=== PATIENT | female | born 2000 | race Caucasian/White ===

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

== ENCOUNTER → 2021-08-14 | Outpatient (CLI) | payer OTHER ==
--- NOTE | 2021-08-14 13:09 | MR ---
EXAMINATION TYPE: MR brain wo con DATE OF EXAM: 08/14/2021 12:31 PM COMPARISON: NONE HISTORY: Chronic migraines Multiplanar and multispin-echo imaging of the brain was performed . The ventricles, basal cisterns and sulci overlying the cerebral convexities are within normal limits. There is no evidence for midline shift or mass effect. Acute intracranial hemorrhage or extra-axial collection is not evident. The brain parenchyma reveals no abnormal increased signal. No acute edema is identified. The paranasal sinuses and mastoid air cells are well-aerated. IMPRESSION: Unremarkable MRI of the brain.
== END | disposition home or self-care (01) ==
LOC: RADMRIMAIN 11:45
PROVIDERS: ATTEND Internal Medicine
DX: G43.909 Migraine, unspecified, not intractable, without status migrainosus (principal)
CPT/HCPCS: 70551

== ENCOUNTER → 2021-08-14 | Outpatient (CLI) | payer OTHER ==
--- NOTE | 2021-08-14 13:14 | US ---
EXAMINATION TYPE: US pelvic complete DATE OF EXAM: 08/14/2021 COMPARISON: NONE CLINICAL HISTORY: N92.6, N94.6. irregular cycles, started control and it is helping, G0 TECHNIQUE: TA. Transabdominal sonographic images of the pelvis were acquired. Date of LMP: unknown EXAM MEASUREMENTS: Uterus: 6.0 x 3.7 x 2.5 cm Endometrial Stripe: 0.5 cm Right Ovary: 1.4 x 1.5 x 1.5cm Left Ovary: not seen, bowel gas 1. Uterus: Anteverted wnl 2. Endometrium: wnl 3. Right Ovary: wnl 4. Left Ovary: not seen, peristalsing bowel obscures ovary 5. Bilateral Adnexa: wnl 6. Posterior cul-de-sac: wnl IMPRESSION: No significant abnormality seen.
== END | disposition home or self-care (01) ==
LOC: RADUSWWP 12:45
PROVIDERS: ATTEND Obstetrics & Gynecology
DX: N92.6 Irregular menstruation, unspecified (principal); N94.6 Dysmenorrhea, unspecified
CPT/HCPCS: 76856

== ENCOUNTER → 2021-11-03 | Outpatient (CLI) | payer OTHER ==
[~2021-11-03] MED LIST: BAMLANIVIMAB (EUA) 700 MG, ETESEVIMAB (EUA) 1,400 MG in SODIUM CHLORIDE 0.9% 100 ML IVPB ONE; SODIUM CHLORIDE 0.9% 50 ML IVPB NR; SODIUM CHLORIDE 0.9% 500 ML 500 ML in EMPTY BAG 1 BAG IV PRN
[2021-11-03 10:52] VITALS: TEMP 97.8
[2021-11-03 11:12] VITALS: BP 98/56; PULSE 96; RESP 16
== END | disposition home or self-care (01) ==
LOC: PROCWHC3 10:04
PROVIDERS: ATTEND Nurse Practitioner Family
DX: U07.1 COVID-19 (principal)
CPT/HCPCS: 96360; J3490; M0245

== ENCOUNTER 2023-11-29 00:18 | Emergency (ER) | payer OTHER ==
[2023-11-29 00:34] VITALS: TEMP 98.5
[2023-11-29] MEDS ORDERED: LORazepam 2 MG/ML INJ IV PRN ×3 (00:56)
[2023-11-29 01:51] LABS: Basophils # (A) 0.1 k/uL (0-0.2); Basophils % (A) 1 %; Eosinophils # (A) 0.2 k/uL (0-0.7); Eosinophils % (A) 3 %; HCT 41.9 % (34.0-46.0); HGB 14.1 gm/dL (11.4-16.0); Lymphocytes # (A) 0.5 k/uL (1.0-4.8); Lymphocytes % (A) 8 %; MCH 34.8 pg (25.0-35.0); MCHC 33.7 g/dL (31.0-37.0); MCV 103.1 fL (80.0-100.0); Macrocytosis Slight; Mean Platelet Volume 8.5; Monocytes # (A) 0.3 k/uL (0-1.0); Monocytes % (A) 5 %; Neutrophils # (A) 5.3 k/uL (1.3-7.7); Neutrophils % (A) 82 %; Platelet Count 124 k/uL (150-450); RBC 4.07 m/uL (3.80-5.40); RDW 12.2 % (11.5-15.5); WBC 6.5 k/uL (3.8-10.6)
[2023-11-29 01:55] LABS: Amorphous Sediment,Urine Rare /hpf; Appearance,Urine Clear (Clear); Bacteria,Urine Occasional /hpf; Bilirubin,Urine Negative (Negative); Blood,Urine Negative (Negative); Color,Urine Colorless; Glucose,Urine (UA) Negative (Negative); Ketones,Urine Negative (Negative); Leukocyte Esterase,Urine Moderate (Negative); Nitrite,Urine Negative (Negative); Protein,Urine Negative (Negative); RBC,Urine <1 /hpf (0-5); Specific Gravity,Urine 1.003 (1.001-1.035); Squamous Epithelial Cell,Urine <1 /hpf (0-4); Urobilinogen,Urine <2.0 mg/dL (<2.0); WBC,Urine 10 /hpf (0-5)
[2023-11-29] MEDS: LORazepam 2 MG/ML INJ IV STA (01:55)
[2023-11-29 02:15] LABS: ALT 107 U/L (4-34); AST 211 U/L (14-36); African American GFR (CKD) >90 (>60 ml/min/1.73 sqM); Albumin 4.7 g/dL (3.5-5.0); Alkaline Phosphatase 78 U/L (38-126); Anion Gap 9 mmol/L; Blood Urea Nitrogen 4 mg/dL (7-17); Carbon Dioxide 25 mmol/L (22-30); Chloride 101 mmol/L (98-107); Glucose 108 mg/dL (74-99); Magnesium 1.3 mg/dL (1.6-2.3); Non-African American GFR(CKD) >90 (>60 ml/min/1.73 sqM); Potassium 4.4 mmol/L (3.5-5.1); Sodium 135 mmol/L (137-145); Total Bilirubin 1.4 mg/dL (0.2-1.3); Total Protein 7.8 g/dL (6.3-8.2)
[2023-11-29] MEDS: THIAMINE 100 MG/ML 2 ML VIAL IM STA (02:17)
--- NOTE | 2023-11-29 02:46 | CT ---
EXAM: CT Head Without Intravenous Contrast CLINICAL HISTORY: ITS.REASON CT Reason: dilated, nonreactive L pupil TECHNIQUE: Axial computed tomography images of the head/brain without intravenous contrast. CTDI is 49.2 mGy and DLP is 1109.4 mGy-cm. This CT exam was performed using one or more of the following dose reduction techniques: automated exposure control, adjustment of the mA and/or kV according to patient size, and/or use of iterative reconstruction technique. COMPARISON: MRI brain dated 08/14/21 FINDINGS: Brain: Unremarkable. No hemorrhage. No significant white matter disease. No edema. Ventricles: Unremarkable. No ventriculomegaly. Bones/joints: Unremarkable. No acute fracture. Soft tissues: Unremarkable. Sinuses: Unremarkable as visualized. No acute sinusitis. Mastoid air cells: Unremarkable as visualized. No mastoid effusion. IMPRESSION: No evidence of acute intracranial abnormality. If further concern, consider MRI.
--- NOTE | 2023-11-29 03:16 | ED ---
Eye Problem HPI - General Chief complaint: Eye Problems Stated complaint: left eye dilation Time Seen by Provider: 11/29/23 00:43 Source: patient Mode of arrival: ambulatory Limitations: no limitations - History of Present Illness Initial comments: This is a 23-year-old female presenting with chief complaint of unequal pupil size. Patient is currently undergoing alcohol withdrawal. Last drink was on Saturday, which is now 2 days ago. She normally drinks a fifth of liquor daily. Patient states she was looking in the mirror tonight and noticed that her left pupil was larger than her right. She denies any head injury. No eye pain or vision changes. No numbness tingling or weakness. No chest pain or difficulty breathing. No abdominal pain. No headache. Patient does not use scopolamine patches. States that she recently quit vaping, states that she only vapes nicotine. No other drug use. No use of antiperspirant deodorant wipes. No eyedrops. 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 ROS Other: All systems not noted in ROS Statement are negative. Past Medical History Past Medical History: No Reported History History of Any Multi-Drug Resistant Organisms: None Reported Past Surgical History: No Surgical Hx Reported Past Psychological History: Anxiety, Depression Smoking Status: Former smoker Past Alcohol Use History: Abuse, Daily, Heavy Past Drug Use History: None Reported General Exam Limitations: no limitations General appearance: alert, anxious Head exam: Present: atraumatic, normocephalic Eye exam: Present: normal appearance, EOMI Pupils: Present: unequal Expanded Pupils: Regular, Round: Right, Reactive: Right, Mydriasis: Left (nonreactive) IOP (R) in mmH IOP (L) in mmH Neck exam: Present: normal inspection, full ROM Respiratory exam: Present: normal lung sounds bilaterally. Absent: respiratory distress, wheezes, rales, rhonchi, stridor Cardiovascular Exam: Present: normal rhythm, tachycardia, normal heart sounds. Absent: systolic murmur, diastolic murmur, rubs, gallop, clicks Neurological exam: Present: alert, oriented X3 Expanded Patient oriented to: Present: person, place, time Speech: Present: fluid speech Cranial nerves: EOM's Intact: Normal, Tongue Deviation: Normal Sensory exam: Upper Extremity Light Touch: Normal, Lower Extremity Light Touch: Normal Motor strength exam: RUE: 5, LUE: 5, RLE: 5, LLE: 5 Eye Response: (4) open spontaneously Motor Response: (6) obeys commands Verbal Response: (5) oriented [place] Total: 15 Psychiatric exam: Present: anxious (etoh withdrawal) Skin exam: Present: warm, dry Course Vital Signs 11/29/23 11/29/23 11/29/23 00:26 02:00 03:00 Temperature 98.5 F Pulse Rate 129 H 126 H 80 Respiratory 18 22 19 Rate Blood Pressure 156/96 139/93 127/65 O2 Sat by Pulse 96 96 98 Oximetry 11/29/23 11/29/23 04:00 05:00 Temperature Pulse Rate 80 69 Respiratory 21 17 Rate Blood Pressure 115/63 115/63 O2 Sat by Pulse 97 Oximetry Medical Decision Making - Medical Decision Making Was pt. sent in by a medical professional or institution (GUSTABO Gimenez, ROTARY SHEAR OPERATOR, urgent care, hospital, or shelter...) When possible be specific @ -No Did you speak to anyone other than the patient for history (EMS, parent, family, police, friend...)? What history was obtained from this source @ -History supplemented by family at bedside Did you review nursing and triage notes (agree or disagree)? Why? @ -I reviewed and agree with nursing and triage notes Were old charts reviewed (outside hosp., previous admission, EMS record, old EKG, old radiological studies, urgent care reports/EKG's, shelter records)? Report findings @ -No old charts were reviewed Differential Diagnosis (chest pain, altered mental status, abdominal pain women, abdominal pain men, vaginal bleeding, weakness, fever, dyspnea, syncope, headache, dizziness, GI bleed, back pain, seizure, CVA, palpatations, mental health, musculoskeletal)? @ -Differential includes intracranial hemorrhage, aneurysm, medication induced, physiologic anisocoria, this is not an all-inclusive list EKG interpreted by me (3pts min.). @ -EKG shows sinus tachycardia ventricular rate 101. QRS 73. QT 311. QTc 369. Normal axis. X-rays interpreted by me (1pt min.). @ -None done CT interpreted by me (1pt min.). @ -CT shows no evidence of acute intracranial abnormality U/S interpreted by me (1pt. min.). @ -None done What testing was considered but not performed or refused? (CT, X-rays, U/S, labs)? Why? @ -None What meds were considered but not given or refused? Why? @ -None Did you discuss the management of the patient with other professionals (professionals i.e. , PA, ROTARY SHEAR OPERATOR, lab, RT, psych nurse, social media specialist, foundry worker apprentice, teacher, personal banking officer, bilingual case manager)? Give summary @ -No Was smoking cessation discussed for >3mins.? @ -No Was critical care preformed (if so, how long)? @ -No Were there social determinants of health that impacted care today? How? (Homelessness, low income, unemployed, alcoholism, drug addiction, trans portation, low edu. Level, literacy, decrease access to med. care, [facility], rehab)? @ -Alcoholism Was there de-escalation of care discussed even if they declined (Discuss DNR or withdrawal of care, Hospice)? DNR status @ -No What co-morbidities impacted this encounter? (DM, HTN, Smoking, COPD, CAD, C ancer, CVA, ARF, Chemo, Hep., AIDS, mental health diagnosis, sleep apnea, morbid obesity)? @ -None Was patient admitted / discharged? Hospital course, mention meds given and route, prescriptions, significant lab abnormalities, going to OR and other pertinent info. @ -23-year-old female presenting with chief complaint of unequal pupil size and alcohol withdrawal. Patient noticed the difference in pupil sizes this evening while looking in the mirror. Her last drink was on Saturday, she normally drinks a fifth per day. History and physical exam were conducted. She recently started taking Lexapro, no known anticholinergic medications or eyedrops are noted. Left pupil is dilated and nonreactive. Extraocular motions are intact, facial symmetry is noted. Equal strength and sensation in the bilateral extremities. No confusion or cognitive deficits. Patient is having tremors due to alcohol withdrawal. Initial CIWA score of 12, given 2 mg Ativan. Normal pressures to the eyes bilaterally. She is having no vision changes. MCV 103.1 platelet count 124 Total bilirubin 1.4 AST 211 ALT 107, to be expected with daily alcohol use. Magnesium 1.3, patient is given 1 g magnesium sulfate. Urine shows 10 WBCs, patient is having no urinary symptoms. Negative hCG. CT shows no acute intracranial process. On reassessment the patient appears much more comfortable, her tremoring has subsided. She is educated on today's findings. I believe she will be stable for discharge home, she is provided with short course of Ativan and educated on alarm symptoms that should prompt immediate reevaluation. At this time unilateral pupil dilation seems to be attributed to physiologic anisocoria, she is instructed to follow-up with ophthalmology. Discharged home. Follow-up with PCP. Report back to ER with any new or worsening symptoms. Discussed return parameters and answered all questions. Patient conveyed verbal understanding and agreed to the plan. I discussed this case in detail with my attending Dr. Ace Undiagnosed new problem with uncertain prognosis? @ -No Drug Therapy requiring intensive monitoring for toxicity (Heparin, Nitro, Insulin, Cardizem)? @ -No Were any procedures done? @ -No Diagnosis/symptom? @ -Alcohol withdrawal, physiologic anisocoria Acute, or Chronic, or Acute on Chronic? @ -Acute Uncomplicated (without systemic symptoms) or Complicated (systemic symptoms)? @ -Uncomplicated Side effects of treatment? @ -No Exacerbation, Progression, or Severe Exacerbation? @ -No Poses a threat to life or bodily function? How? (Chest pain, [place], [place], pneumonia, PE, COPD, DKA, ARF, appy, cholecystitis, CVA, Diverticulitis, Homicidal, Suicidal, threat to staff... and all critical care pts) @ -Low likelihood at this time - Lab Data Result diagrams: 11/29/23 01:40 11/29/23 01:40 Lab Results 11/29/23 11/29/23 11/29/23 Range/Units 01:30 01:30 01:40 WBC 6.5 (3.8-10.6) k/uL RBC 4.07 (3.80-5.40) m/uL Hgb 14.1 (11.4-16.0) gm/dL Hct 41.9 (34.0-46.0) % MCV 103.1 H (80.0-100.0) fL MCH 34.8 (25.0-35.0) pg MCHC 33.7 (31.0-37.0) g/dL RDW 12.2 (11.5-15.5) % Plt Count 124 L (150-450) k/uL MPV 8.5 Neutrophils % 82 % Lymphocytes % 8 % Monocytes % 5 % Eosinophils % 3 % Basophils % 1 % Neutrophils # 5.3 (1.3-7.7) k/uL Lymphocytes # 0.5 L (1.0-4.8) k/uL Monocytes # 0.3 (0-1.0) k/uL Eosinophils # 0.2 (0-0.7) k/uL Basophils # 0.1 (0-0.2) k/uL Macrocytosis Slight Sodium (137-145) mmol/L Potassium (3.5-5.1) mmol/L Chloride (98-107) mmol/L Carbon Dioxide (22-30) mmol/L Anion Gap mmol/L BUN (7-17) mg/dL Creatinine (0.52-1.04) mg/dL Est GFR (CKD-EPI)AfAm (>60 ml/min/1.73 sqM) Est GFR (CKD-EPI)NonAf (>60 ml/min/1.73 sqM) Glucose (74-99) mg/dL Calcium (8.4-10.2) mg/dL Magnesium (1.6-2.3) mg/dL Total Bilirubin (0.2-1.3) mg/dL AST (14-36) U/L ALT (4-34) U/L Alkaline Phosphatase (38-126) U/L Total Protein (6.3-8.2) g/dL Albumin (3.5-5.0) g/dL Urine Color Colorless Urine Appearance Clear (Clear) Urine pH 7.0 (5.0-8.0) Ur Specific [place] 1.003 (1.001-1.035) Urine Protein Negative (Negative) Urine Glucose (UA) Negative (Negative) Urine Ketones Negative (Negative) Urine Blood Negative (Negative) Urine Nitrite Negative (Negative) Urine Bilirubin Negative (Negative) Urine Urobilinogen <2.0 (<2.0) mg/dL Ur Leukocyte Esterase Moderate H (Negative) Urine RBC <1 (0-5) /hpf Urine WBC 10 H (0-5) /hpf Ur Squamous Epith Cells <1 (0-4) /hpf Amorphous Sediment Rare H (None) /hpf Urine Bacteria Occasional H (None) /hpf Urine HCG, Qual Not Detected (Not Detectd) 11/29/23 Range/Units 01:40 WBC (3.8-10.6) k/uL RBC (3.80-5.40) m/uL Hgb (11.4-16.0) gm/dL Hct (34.0-46.0) % MCV (80.0-100.0) fL MCH (25.0-35.0) pg MCHC (31.0-37.0) g/dL RDW (11.5-15.5) % Plt Count (150-450) k/uL MPV Neutrophils % % Lymphocytes % % Monocytes % % Eosinophils % % Basophils % % Neutrophils # (1.3-7.7) k/uL Lymphocytes # (1.0-4.8) k/uL Monocytes # (0-1.0) k/uL Eosinophils # (0-0.7) k/uL Basophils # (0-0.2) k/uL Macrocytosis Sodium 135 L (137-145) mmol/L Potassium 4.4 (3.5-5.1) mmol/L Chloride 101 (98-107) mmol/L Carbon Dioxide 25 (22-30) mmol/L Anion Gap 9 mmol/L BUN 4 L (7-17) mg/dL Creatinine 0.44 L (0.52-1.04) mg/dL Est GFR (CKD-EPI)AfAm >90 (>60 ml/min/1.73 sqM) Est GFR (CKD-EPI)NonAf >90 (>60 ml/min/1.73 sqM) Glucose 108 H (74-99) mg/dL Calcium 10.0 (8.4-10.2) mg/dL Magnesium 1.3 L (1.6-2.3) mg/dL Total Bilirubin 1.4 H (0.2-1.3) mg/dL AST 211 H (14-36) U/L ALT 107 H (4-34) U/L Alkaline Phosphatase 78 (38-126) U/L Total Protein 7.8 (6.3-8.2) g/dL Albumin 4.7 (3.5-5.0) g/dL Urine Color Urine Appearance (Clear) Urine pH (5.0-8.0) Ur Specific [place] (1.001-1.035) Urine Protein (Negative) Urine Glucose (UA) (Negative) Urine Ketones (Negative) Urine Blood (Negative) Urine Nitrite (Negative) Urine Bilirubin (Negative) Urine Urobilinogen (<2.0) mg/dL Ur Leukocyte Esterase (Negative) Urine RBC (0-5) /hpf Urine WBC (0-5) /hpf Ur Squamous Epith Cells (0-4) /hpf Amorphous Sediment (None) /hpf Urine Bacteria (None) /hpf Urine HCG, Qual (Not Detectd) Disposition Clinical Impression: Alcohol withdrawal, Physiologic anisocoria Disposition: HOME SELF-CARE Instructions (If sedation given, give patient instructions): Alcohol Withdrawal (ED) Additional Instructions: Follow-up with PCP and ophthalmology. Report back to ER with any new or worsening symptoms. Prescriptions: LORazepam [Ativan] 1 mg PO TID 3 Days #9 tab Is patient prescribed a controlled substance at d/c from ED?: Yes When asked, does pt state using other controlled substances?: No If prescribed controlled substance>3 days was MAPS reviewed?: Prescribed <3 Days Referrals: Benjamin Barry MD [Primary Care Provider] - 1-2 days Paty Jones MD [STAFF PHYSICIAN] - 1-2 days Time of Disposition: 04:01
[2023-11-29] MEDS: MAGNESIUM SULFATE-D5W PMX 1 GM in DEXTROSE/WATER 1 100ML.BAG IVPB ONE (03:25)
[2023-11-29] MEDS: SODIUM CHLORIDE 0.9% 1,000 ML IV ONE (03:25)
[2023-11-29 05:03] VITALS: BP 115/63
[2023-11-29 05:30] VITALS: PULSE 69; RESP 17
[2023-11-30] MEDS ORDERED: THIAMINE 100 MG TAB PO SCH (09:00)
== END 2023-11-29 05:32 | disposition home or self-care (01) ==
LOC: EC 00:18
DX: H57.02 Anisocoria (principal); F10.239 Alcohol dependence with withdrawal, unspecified; Z86.59 Personal history of other mental and behavioral disorders; Z87.891 Personal history of nicotine dependence; Z88.0 Allergy status to penicillin
CPT/HCPCS: 36415; 93005; 80053; 83735; 85025; 81001; 81025; 70450; 99284; 96365; 96375; 96372; J2060; J3411; J3475

== ENCOUNTER 2024-02-01 20:56 | Inpatient (IN) | payer OTHER ==
--- NOTE | 2024-02-01 21:50 | ED ---
General Adult HPI - General Chief complaint: Headache Stated complaint: Seizure Time Seen by Provider: 02/01/24 20:59 Source: patient Mode of arrival: EMS Limitations: no limitations - History of Present Illness Initial comments: 23-year-old female with a past medical history significant for alcohol abuse and migraines presenting to the ED with a chief complaint of possible seizure. Per parents, received a call that her daughter was not feeling good and upon arrival found her tremulous. Shortly after reported seizure like activity. Patient at this time complains of anxiety and tremors. Denies headache, nausea, vomiting, paresthesias, auditory, or visual hallucinations. Patient reports that she is an up to daily drinker and drinks up to a pint a day. Reports her last heavy alcohol use was 2 days ago in which she reports she drank a pint. Reports that she did have a "drink" earlier today. No other complaints at this time. Per mother, was in an argument with the patients a few days ago and suspects she stopped drinking suddenly because of this. - Related Data Home Medications Medication Instructions Recorded Confirmed Rizatriptan Odt [Maxalt Nurse Office] 10 mg PO BID PRN 09/04/17 09/04/17 Previous Rx's Medication Instructions Recorded LORazepam [Ativan] 1 mg PO TID 3 Days #9 tab 11/29/23 Allergies Allergy/AdvReac Type Severity Reaction Status Date / Time Penicillins AdvReac Unknown Verified 11/29/23 00:31 Review of Systems ROS Statement: Those systems with pertinent positive or pertinent negative responses have been documented in the HPI. ROS Other: All systems not noted in ROS Statement are negative. Past Medical History Past Medical History: No Reported History History of Any Multi-Drug Resistant Organisms: None Reported Past Surgical History: No Surgical Hx Reported Past Psychological History: Anxiety, Depression Smoking Status: Former smoker Past Alcohol Use History: Abuse, Daily, Heavy Past Drug Use History: None Reported General Exam Limitations: no limitations General appearance: alert, anxious Eye exam: Present: EOMI, other (Right eye reactive, left pupil fixed) ENT exam: Present: other (Intraoral bite kumar to the lips and some to the tongue) Neck exam: Present: normal inspection Respiratory exam: Present: normal lung sounds bilaterally Cardiovascular Exam: Present: tachycardia GI/Abdominal exam: Present: soft Extremities exam: Present: other (Tremulous with arms extended) Neurological exam: Present: alert, oriented X3, CN II-XII intact, other (Intact serial additions) Psychiatric exam: Present: anxious Skin exam: Present: warm, dry Course Vital Signs 02/01/24 02/01/24 02/01/24 20:59 22:27 23:03 Pulse Rate 128 H 124 H 118 H Respiratory 18 16 16 Rate Blood Pressure 141/102 131/95 O2 Sat by Pulse 96 Oximetry Medical Decision Making - Medical Decision Making Was pt. sent in by a medical professional or institution (, PA, FREIGHT SEPARATOR, urgent care, hospital, or shelter...) When possible be specific @ -No Did you speak to anyone other than the patient for history (EMS, parent, family, police, friend...)? What history was obtained from this source @ -Parts of history obtained by both patient and mother. For further details please see HPI. Did you review nursing and triage notes (agree or disagree)? Why? @ -I reviewed and agree with nursing and triage notes Were old charts reviewed (outside hosp., previous admission, EMS record, old EKG, old radiological studies, urgent care reports/EKG's, shelter records)? Report findings @ -Prior charts reviewed showing history of anisocoria and alcohol abuse Differential Diagnosis (chest pain, altered mental status, abdominal pain women, abdominal pain men, vaginal bleeding, weakness, fever, dyspnea, syncope, headache, dizziness, GI bleed, back pain, seizure, CVA, palpatations, mental health, musculoskeletal)? @ -Differential Seizure: Recurrent seizure disorder, febrile seizure, alcohol withdrawal, stimulants, meningitis, encephalitis, intercranial hemorrhage, intracranial tumor, stroke, eclampsia, thyrotoxicosis, hypocalcemia, hyponatremia, hypernatremia, hyp omagnesemia, psychogenic, this is not meant to be an all-inclusive list. EKG interpreted by me (3pts min.). @ -None X-rays interpreted by me (1pt min.). @ -None done CT interpreted by me (1pt min.). @ -None done U/S interpreted by me (1pt. min.). @ -None done What testing was considered but not performed or refused? (CT, X-rays, U/S, labs)? Why? @ -None What meds were considered but not given or refused? Why? @ -None Did you discuss the management of the patient with other professionals (professionals i.e. DrSamson, PA, FREIGHT SEPARATOR, lab, RT, psych nurse, bilingual social worker, career resource technician, teacher, special technical operations officer, case reviewer)? Give summary @ -Case discussed with Dr. Glaser, who accepts admission and is in agreement with plan of care. Was smoking cessation discussed for >3mins.? @ -No Was critical care preformed (if so, how long)? @ -No Were there social determinants of health that impacted care today? How? (Homelessness, low income, unemployed, alcoholism, drug addiction, transportation, low edu. Level, literacy, decrease access to med. care, group home, rehab)? @ -No Was there de-escalation of care discussed even if they declined (Discuss DNR or withdrawal of care, Hospice)? DNR status @ -No What co-morbidities impacted this encounter? (DM, HTN, Smoking, COPD, CAD, Cancer, CVA, ARF, Chemo, Hep., AIDS, mental health diagnosis, sleep apnea, morbid obesity)? @ -Alcoholism Was patient admitted / discharged? Hospital course, mention meds given and route, prescriptions, significant lab abnormalities, going to OR and other pertinent info. @ -Admission 23-year-old female presenting to the ED with complaint seizure. No history of seizures in the past. Per patient, drinks a pint daily. States her last major drink was approximately 3 days ago in which she had a pint. Reports that she had 1 drink today. From parents, was in an argument with patient few days ago and suspects that she quit drinking cold turkey following this argument. Received a call from the patient today who reported she was not feeling there. Upon arrival to the patient she was very tremulous and they witnessed her having a seizure. Laboratory studies reviewed. CBC largely unremarkable. CMP shows transaminitis consistent with history of alcohol use. Lactic acid elevated at 3 and on examination patient does have intraoral trauma consistent with seizure. UA does show some evidence of infection however at this time patient reports no symptoms. Patient will be admitted secondary to alcohol withdrawal with seizure. Plan of care discussed with patient and family who are in agreement. Undiagnosed new problem with uncertain prognosis? @ -No Drug Therapy requiring intensive monitoring for toxicity (Heparin, Nitro, In sulin, Cardizem)? @ -No Were any procedures done? @ -No Diagnosis/symptom? @ -Alcohol withdrawal, seizure Acute, or Chronic, or Acute on Chronic? @ -Acute Uncomplicated (without systemic symptoms) or Complicated (systemic symptoms)? @ -Complicated Side effects of treatment? @ -No Exacerbation, Progression, or Severe Exacerbation? @ -No Poses a threat to life or bodily function? How? (Chest pain, [place], [place], pneumonia, PE, COPD, DKA, ARF, appy, cholecystitis, CVA, Diverticulitis, Homicidal, Suicidal, threat to staff... and all critical care pts) @ -Possibly however at this time unlikely - Lab Data Result diagrams: 02/01/24 22:05 02/01/24 22:05 Lab Results 02/01/24 02/01/24 02/01/24 Range/Units 21:58 21:58 22:05 WBC 7.5 (3.8-10.6) k/uL RBC 4.16 (3.80-5.40) m/uL Hgb 14.6 (11.4-16.0) gm/dL Hct 43.0 (34.0-46.0) % MCV 103.3 H (80.0-100.0) fL MCH 35.2 H (25.0-35.0) pg MCHC 34.0 (31.0-37.0) g/dL RDW 13.8 (11.5-15.5) % Plt Count 105 L (150-450) k/uL MPV 9.9 Neutrophils % 92 % Lymphocytes % 3 % Monocytes % 4 % Eosinophils % 1 % Basophils % 0 % Neutrophils # 6.9 (1.3-7.7) k/uL Lymphocytes # 0.2 L (1.0-4.8) k/uL Monocytes # 0.3 (0-1.0) k/uL Eosinophils # 0.0 (0-0.7) k/uL Basophils # 0.0 (0-0.2) k/uL Macrocytosis Slight Sodium (137-145) mmol/L Potassium (3.5-5.1) mmol/L Chloride (98-107) mmol/L Carbon Dioxide (22-30) mmol/L Anion Gap mmol/L BUN (7-17) mg/dL Creatinine (0.52-1.04) mg/dL Est GFR (CKD-EPI)AfAm (>60 ml/min/1.73 sqM) Est GFR (CKD-EPI)NonAf (>60 ml/min/1.73 sqM) Glucose (74-99) mg/dL Plasma Lactic Acid Franco (0.7-2.0) mmol/L Calcium (8.4-10.2) mg/dL Total Bilirubin (0.2-1.3) mg/dL AST (14-36) U/L ALT (4-34) U/L Alkaline Phosphatase (38-126) U/L Total Protein (6.3-8.2) g/dL Albumin (3.5-5.0) g/dL Urine Color Yellow Urine Appearance Cloudy H (Clear) Urine pH 6.5 (5.0-8.0) Ur Specific Bridgman 1.022 (1.001-1.035) Urine Protein 2+ H (Negative) Urine Glucose (UA) Negative (Negative) Urine Ketones 2+ H (Negative) Urine Blood Small H (Negative) Urine Nitrite Negative (Negative) Urine Bilirubin Negative (Negative) Urine Urobilinogen <2.0 (<2.0) mg/dL Ur Leukocyte Esterase Small H (Negative) Urine RBC 3 (0-5) /hpf Urine WBC 5 (0-5) /hpf Ur Squamous Epith Cells 6 H (0-4) /hpf Urine Bacteria Rare H (None) /hpf Urine Mucus Many H (None) /hpf Urine HCG, Qual Not Detected (Not Detectd) Urine Opiates Screen Not Detected (NotDetected) Ur Oxycodone Screen Not Detected (NotDetected) Urine Methadone Screen Not Detected (NotDetected) Ur Barbiturates Screen Not Detected (NotDetected) U Tricyclic Antidepress Not Detected (NotDetected) Ur Phencyclidine Scrn Not Detected (NotDetected) Ur Amphetamines Screen Not Detected (NotDetected) U Methamphetamines Scrn Not Detected (NotDetected) U Benzodiazepines Scrn Not Detected (NotDetected) Urine Cocaine Screen Not Detected (NotDetected) U Marijuana (THC) Screen Not Detected (NotDetected) Serum Alcohol mg/dL 02/01/24 02/01/24 Range/Units 22:05 22:05 WBC (3.8-10.6) k/uL RBC (3.80-5.40) m/uL Hgb (11.4-16.0) gm/dL Hct (34.0-46.0) % MCV (80.0-100.0) fL MCH (25.0-35.0) pg MCHC (31.0-37.0) g/dL RDW (11.5-15.5) % Plt Count (150-450) k/uL MPV Neutrophils % % Lymphocytes % % Monocytes % % Eosinophils % % Basophils % % Neutrophils # (1.3-7.7) k/uL Lymphocytes # (1.0-4.8) k/uL Monocytes # (0-1.0) k/uL Eosinophils # (0-0.7) k/uL Basophils # (0-0.2) k/uL Macrocytosis Sodium 130 L (137-145) mmol/L Potassium 4.1 (3.5-5.1) mmol/L Chloride 98 (98-107) mmol/L Carbon Dioxide 19 L (22-30) mmol/L Anion Gap 13 mmol/L BUN 4 L (7-17) mg/dL Creatinine 0.41 L (0.52-1.04) mg/dL Est GFR (CKD-EPI)AfAm >90 (>60 ml/min/1.73 sqM) Est GFR (CKD-EPI)NonAf >90 (>60 ml/min/1.73 sqM) Glucose 139 H (74-99) mg/dL Plasma Lactic Acid Franco 3.0 H* (0.7-2.0) mmol/L Calcium 9.8 (8.4-10.2) mg/dL Total Bilirubin 1.8 H (0.2-1.3) mg/dL AST 286 H (14-36) U/L ALT 97 H (4-34) U/L Alkaline Phosphatase 119 (38-126) U/L Total Protein 8.2 (6.3-8.2) g/dL Albumin 4.9 (3.5-5.0) g/dL Urine Color Urine Appearance (Clear) Urine pH (5.0-8.0) Ur Specific Bridgman (1.001-1.035) Urine Protein (Negative) Urine Glucose (UA) (Negative) Urine Ketones (Negative) Urine Blood (Negative) Urine Nitrite (Negative) Urine Bilirubin (Negative) Urine Urobilinogen (<2.0) mg/dL Ur Leukocyte Esterase (Negative) Urine RBC (0-5) /hpf Urine WBC (0-5) /hpf Ur Squamous Epith Cells (0-4) /hpf Urine Bacteria (None) /hpf Urine Mucus (None) /hpf Urine HCG, Qual (Not Detectd) Urine Opiates Screen (NotDetected) Ur Oxycodone Screen (NotDetected) Urine Methadone Screen (NotDetected) Ur Barbiturates Screen (NotDetected) U Tricyclic Antidepress (NotDetected) Ur Phencyclidine Scrn (NotDetected) Ur Amphetamines Screen (NotDetected) U Methamphetamines Scrn (NotDetected) U Benzodiazepines Scrn (NotDetected) Urine Cocaine Screen (NotDetected) U Marijuana (THC) Screen (NotDetected) Serum Alcohol <10 mg/dL Disposition Clinical Impression: Seizure, Alcohol withdrawal Disposition: ADMITTED IP TO THIS [facility] Condition: Good Referrals: Benjamin Barry MD [Primary Care Provider] - 1-2 days Time of Disposition: 23:15
[2024-02-01] MEDS: SODIUM CHLORIDE 0.9% 1,000 ML IV STA (22:05)
[2024-02-01] MEDS: LORazepam 2 MG/ML INJ IV STA (22:05)
[2024-02-01 22:30] LABS: Basophils % (A) 0 %; Eosinophils % (A) 1 %; Lymphocytes # (A) 0.2 k/uL (1.0-4.8); Lymphocytes % (A) 3 %; Macrocytosis Slight; Monocytes # (A) 0.3 k/uL (0-1.0); Monocytes % (A) 4 %; Neutrophils % (A) 92 %
[2024-02-01 22:43] LABS: HGB 14.6 gm/dL (11.4-16.0); MCH 35.2 pg (25.0-35.0); MCV 103.3 fL (80.0-100.0); Mean Platelet Volume 9.9; Neutrophils # (A) 6.9 k/uL (1.3-7.7); Platelet Count 105 k/uL (150-450); RBC 4.16 m/uL (3.80-5.40); RDW 13.8 % (11.5-15.5); WBC 7.5 k/uL (3.8-10.6)
[2024-02-01 22:58] LABS: Appearance,Urine Cloudy (Clear); Bacteria,Urine Rare /hpf; Bilirubin,Urine Negative (Negative); Blood,Urine Small (Negative); Color,Urine Yellow; Glucose,Urine (UA) Negative (Negative); Leukocyte Esterase,Urine Small (Negative); Mucus,Urine Many /hpf; Nitrite,Urine Negative (Negative); PH, Urine 6.5 (5.0-8.0); Protein,Urine 2+ (Negative); RBC,Urine 3 /hpf (0-5); Specific Gravity,Urine 1.022 (1.001-1.035); Squamous Epithelial Cell,Urine 6 /hpf (0-4); Urobilinogen,Urine <2.0 mg/dL (<2.0); WBC,Urine 5 /hpf (0-5)
[2024-02-01 23:03] LABS: ALT 97 U/L (4-34); African American GFR (CKD) >90 (>60 ml/min/1.73 sqM); Alcohol <10 mg/dL; Anion Gap 13 mmol/L; Blood Urea Nitrogen 4 mg/dL (7-17); Calcium 9.8 mg/dL (8.4-10.2); Carbon Dioxide 19 mmol/L (22-30); Chloride 98 mmol/L (98-107); Glucose 139 mg/dL (74-99); Non-African American GFR(CKD) >90 (>60 ml/min/1.73 sqM); Sodium 130 mmol/L (137-145); Total Bilirubin 1.8 mg/dL (0.2-1.3)
[2024-02-01 23:04] LABS: Amphetamine Screen,Urine Not Detected (NotDetected); Barbiturate Screen,Urine Not Detected (NotDetected); Benzodiazepines Screen,Urine Not Detected (NotDetected); Cocaine Screen,Urine Not Detected (NotDetected); Methadone Screen, Urine Not Detected (NotDetected); Opiate Screen,Urine Not Detected (NotDetected); Oxycodone Screen, Urine Not Detected (NotDetected); Phencyclidine Screen,Urine Not Detected (NotDetected); Tricyclic Antidepressant,Urine Not Detected (NotDetected); Urn Cannabinoid Scrn Not Detected (NotDetected)
[2024-02-01 23:05] LABS: Ketones,Urine 2+ (Negative)
[2024-02-01] MEDS ORDERED: LORazepam 2 MG/ML INJ IV PRN (23:16)
[2024-02-01 23:26] LABS: AST 286 U/L (14-36); Albumin 4.9 g/dL (3.5-5.0); Alkaline Phosphatase 119 U/L (38-126); Potassium 4.1 mmol/L (3.5-5.1); Total Protein 8.2 g/dL (6.3-8.2)
[2024-02-01 23:42] LABS: Magnesium 1.7 mg/dL (1.6-2.3); Phosphorus 2.7 mg/dL (2.5-4.5)
[2024-02-01] MEDS ORDERED: ONDANSETRON 4 MG/2 ML VIAL IVP PRN (23:43)
[2024-02-01] MEDS ORDERED: NALOXONE 0.4 MG/ML 1 ML VIAL IV PRN (23:43)
[2024-02-01] MEDS ORDERED: ACETAMINOPHEN TAB 325 MG TAB PO PRN (23:43)
[2024-02-01] MEDS ORDERED: KETOROLAC 15 MG/ML 1 ML VIAL IVP PRN (23:43)
[2024-02-01] MEDS: THIAMINE 100 MG/ML 2 ML VIAL IM STA (23:49)
[2024-02-01] MEDS: FOLIC ACID 1 MG TAB PO SCH (23:49)
[2024-02-01] MEDS: DEXTROSE 5%-0.45% NACL 1,000 ML IV SCH (23:55)
[2024-02-02] MEDS: THIAMINE 100 MG TAB PO SCH (08:49)
[2024-02-02] MEDS: LORazepam 2 MG/ML INJ IV PRN ×2 (08:56→21:57)
--- NOTE | 2024-02-02 10:09 | P.HPIM ---
History of Present Illness H&P Date: 02/02/24 Chief Complaint: New onset seizure This is a 23-year-old female known to the practice. She has a history of alcoholism. She drinks approximately a pint of alcohol a day and has for quite some time. She indicates at least it has been the past several months. She reports doing counseling and other therapy to help with her alcoholism. She indicates that several days ago she tried to quit drinking. She was driving home last night when she felt very shaky and had significant muscle spasms. She stopped and her family had come to her aid. They report after getting out of the car she had a seizure. She was unconscious. This lasted for 30 to 45 seconds of shaking uncontrollably. Then she was confused for 20 to 30 minutes. At that time she was brought in the emergency room seen evaluated. Her only complaint at this moment was some ear pain at the time she was having seizure indicates that came and went since then. She is being seen this morning in the emergency room. Her father is at bedside. She reports no other symptoms right at this time. She does not know why she continues to drink alcohol. She tried to quit to make her life better. 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 [employer] for employment (including self-employed).: No Medications and Allergies Home Medications Medication Instructions Recorded Confirmed Type Rizatriptan Odt [Maxalt Manhole Stripper] 10 mg PO BID PRN 09/04/17 09/04/17 History LORazepam [Ativan] 1 mg PO TID 3 Days #9 tab 11/29/23 Rx Allergies Allergy/AdvReac Type Severity Reaction Status Date / Time Penicillins AdvReac Unknown Verified 11/29/23 00:31 Physical Exam Vitals: Vital Signs Pulse Resp BP Pulse Ox 02/02/24 08:00 92 20 117/70 98 02/02/24 05:00 80 16 107/61 02/02/24 02:41 115 H 16 117/73 96 02/02/24 01:25 95 18 02/01/24 23:03 118 H 16 131/95 04/13/24 22:27 124 H 16 02/01/24 20:59 128 H 18 141/102 96 Intake and Output 02/01/24 02/02/24 02/02/24 22:59 06:59 14:59 Other: Weight 45.359 kg GENERAL: Well-appearing, well-nourished and in no acute distress. HEAD: Atraumatic, normocephalic. EYES: Pupils equal round and reactive to light, extraocular movements intact, sclera anicteric, conjunctiva are normal. ENT:nares patent, oropharynx clear without exudates. Moist mucous membranes. NECK: Normal range of motion, supple without lymphadenopathy or JVD, no thyromegaly LUNGS: Breath sounds clear to auscultation bilaterally and equal. No wheezes rales or rhonchi. HEART: Regular rate and rhythm without murmurs, rubs or gallops.S1S2 Normal ABDOMEN: Soft, nontender, normoactive bowel sounds. No guarding, no rebound. No masses appreciated. EXTREMITIES: Normal range of motion, no pitting or edema. No clubbing or cyanosis. NEUROLOGICAL: Cranial nerves II through XII grossly intact. Normal speech, normal gait. PSYCH: Normal mood, normal affect. SKIN: Warm, Dry, normal turgor, no rashes or lesions noted. Results CBC & Chem 7: 02/01/24 22:05 02/01/24 22:05 Labs: Abnormal Lab Results - Last 24 Hours (Table) 02/01/24 02/01/24 02/01/24 Range/Units 21:58 22:05 22:05 MCV 103.3 H (80.0-100.0) fL MCH 35.2 H (25.0-35.0) pg Plt Count 105 L (150-450) k/uL Lymphocytes # 0.2 L (1.0-4.8) k/uL Sodium 130 L (137-145) mmol/L Carbon Dioxide 19 L (22-30) mmol/L BUN 4 L (7-17) mg/dL Creatinine 0.41 L (0.52-1.04) mg/dL Glucose 139 H (74-99) mg/dL Plasma Lactic Acid Franco (0.7-2.0) mmol/L Total Bilirubin 1.8 H (0.2-1.3) mg/dL GGT (0-38) U/L AST 286 H (14-36) U/L ALT 97 H (4-34) U/L Urine Appearance Cloudy H (Clear) Urine Protein 2+ H (Negative) Urine Ketones 2+ H (Negative) Urine Blood Small H (Negative) Ur Leukocyte Esterase Small H (Negative) Ur Squamous Epith Cells 6 H (0-4) /hpf Urine Bacteria Rare H (None) /hpf Urine Mucus Many H (None) /hpf 02/01/24 02/01/24 Range/Units 22:05 22:05 MCV (80.0-100.0) fL MCH (25.0-35.0) pg Plt Count (150-450) k/uL Lymphocytes # (1.0-4.8) k/uL Sodium (137-145) mmol/L Carbon Dioxide (22-30) mmol/L BUN (7-17) mg/dL Creatinine (0.52-1.04) mg/dL Glucose (74-99) mg/dL Plasma Lactic Acid Franco 3.0 H* (0.7-2.0) mmol/L Total Bilirubin (0.2-1.3) mg/dL GGT 600 H (0-38) U/L AST (14-36) U/L ALT (4-34) U/L Urine Appearance (Clear) Urine Protein (Negative) Urine Ketones (Negative) Urine Blood (Negative) Ur Leukocyte Esterase (Negative) Ur Squamous Epith Cells (0-4) /hpf Urine Bacteria (None) /hpf Urine Mucus (None) /hpf Thrombosis Risk Factor Assmnt - DVT/VTE Prophylaxis DVT/VTE Prophylaxis: Low risk, early ambulation encouraged Assessment and Plan (1) Migraine Current Visit: Yes Status: Acute Code(s): G43.909 - MIGRAINE, UNSP, NOT INTRACTABLE, WITHOUT STATUS MIGRAINOSUS SNOMED Code(s): 62334648 (2) Alcohol withdrawal Current Visit: Yes Status: Acute Code(s): F10.939 - ALCOHOL USE, UNSPECIFIED WITH WITHDRAWAL, UNSPECIFIED SNOMED Code(s): 139972014 (3) Seizure Current Visit: Yes Status: Acute Code(s): R56.9 - UNSPECIFIED CONVULSIONS SNOMED Code(s): 85302209 (4) Otalgia of right ear Current Visit: Yes Status: Acute Code(s): H92.01 - OTALGIA, RIGHT EAR SNOMED Code(s): 4279426361 Plan: We will consult neurology. Repeat labs today and in AM. Multivitamin supplement will be ordered, reorder home medications for her migraines. Should be reevaluated in the next 24 hours. She was counseled that [facility] law indicates after seizure she is unable to drive for 6 months.
[2024-02-02] MEDS ORDERED: SUMAtriptan succinate 50 MG TAB PO PRN (10:10)
[2024-02-02 11:24] LABS: African American GFR (CKD) >90 (>60 ml/min/1.73 sqM); Anion Gap 6 mmol/L; Blood Urea Nitrogen 4 mg/dL (7-17); Calcium 9.3 mg/dL (8.4-10.2); Carbon Dioxide 26 mmol/L (22-30); Chloride 101 mmol/L (98-107); Glucose 107 mg/dL (74-99); Magnesium 1.9 mg/dL (1.6-2.3); Non-African American GFR(CKD) >90 (>60 ml/min/1.73 sqM); Potassium 3.3 mmol/L (3.5-5.1); Sodium 133 mmol/L (137-145)
[2024-02-02] MEDS ORDERED: Potassium Replacement Protocol 1 EACH MISC MISCELLANE PRN (16:09)
[2024-02-02] MEDS: POTASSIUM CHLORIDE ER 20 MEQ TAB.ER PO SCH (17:50)
[2024-02-03] MEDS: SERTRALINE 100 MG TAB PO SCH (08:06)
[2024-02-03 08:23] VITALS: BP 134/92; PULSE 78; RESP 18; TEMP 97.5
[2024-02-03 08:45] LABS: African American GFR (CKD) >90 (>60 ml/min/1.73 sqM); Anion Gap 12 mmol/L; Blood Urea Nitrogen 5 mg/dL (7-17); Calcium 9.9 mg/dL (8.4-10.2); Carbon Dioxide 21 mmol/L (22-30); Chloride 106 mmol/L (98-107); Glucose 88 mg/dL (74-99); Magnesium 1.8 mg/dL (1.6-2.3); Non-African American GFR(CKD) >90 (>60 ml/min/1.73 sqM); Potassium 3.3 mmol/L (3.5-5.1); Sodium 139 mmol/L (137-145)
--- NOTE | 2024-02-03 09:59 | P.CNNES ---
History of Present Illness Consult date: 02/02/24 Requesting physician: Manuel Aaron Reason for Consult: Alcohol withdrawal. Seizure. No hx seizure. Likely 2' to withdrawal History of Present Illness: Patient is a 23-year-old female who was brought to the hospital by ambulance for possible seizure, that happened last night at around 8:15 PM. Patient states that she was driving home, when she started having uncontrollable shakes. She pulled over and called her family. Patient's parents came over and she could not walk to her dad's car. They drove back to the home, which is about [address], and while he was parked in the driveway, and another couple min utes, patient had a convulsion, in which her eyes rolled back. She remembers feeling as if voices got muffled as if she was going underwater before the seizure. She did not lose control of urine or had a tongue bite, although she did bit on her lips. They called the ambulance and patient was brought to the hospital. Patient states that she does not remember the seizure or the events that led up to the seizure. Yesterday she was very confused has to ask what happened. When she came to the hospital she was coherent, but confused as to what happened. When EMS arrived, patient was confused, postictal. Her vitals at the scene was blood pressure 158/98, pulse rate 1 and 17, temperature 98.6 and blood sugar 136. Vitals on arrival blood pressure 141/102, pulse rate 128. Repeat blood pressure was 131/95. Patient states that about 1 time, a few weeks ago when she was out of state and she was in the passenger side and her friend was driving when she had uncontrollable shakes, but it did not escalate to the seizure. Patient's blood test shows CBC with elevated MCV 103.3. Platelets are low 105. Hemoglobin normal. Sodium 130. Lactate was 3.0, elevated. AST 286, ALT 97. GGT also elevated. Patient had a normal CT scan of the head. I personally reviewed CT head, which was normal. Patient had a previous normal MRI of the brain performed without contrast on 08/14/2021 for "headaches". Patient denies any history of seizures. Her maternal grandfather had seizures related to "sugars and blood pressure". Patient denies any tobacco use. No use of drugs. Patient states that she drinks most of the days (about 3 to 4 days) of the week. She takes 2-3+ drinks on those days. She usually takes seltzer vodka. Patient states that she has been drinking much more since November 2023. Previously she used to be "casual drinker". Patient visited ER on 11/29/2023 for alcohol withdrawal as well. There were no shakes or seizure, although patient was "jittery", and her pupils were unusually dilated. She was given Ativan, Benadryl and sent home. Patient also has history of optic migraines. Review of Systems Constitutional: Denies chills, Denies fever Eyes: denies blurred vision, denies diplopia, denies pain, denies loss of vision Ears: deny: decreased hearing, ear discharge Ears, nose, mouth and throat: Denies headache, Denies sore throat, Denies vertigo Cardiovascular: Reports chest pain, Denies lightheadedness, Denies shortness of breath Respiratory: Denies cough, Denies excessive sputum Gastrointestinal: Denies abdominal pain, Denies diarrhea, Denies nausea, Denies vomiting Genitourinary: Denies dysuria, Denies hematuria, Denies urge incontinence, Denies urgency Musculoskeletal: Denies low back pain, Denies myalgias, Denies neck pain Integumentary: Denies pruritus, Denies rash Neurological: Reports as per HPI Psychiatric: Reports anxiety, Reports depression Endocrine: Reports weight change, Denies fatigue Past Medical History Past Medical History: No Reported History History of Any Multi-Drug Resistant Organisms: None Reported Past Surgical History: No Surgical Hx Reported Past Psychological History: Anxiety, Depression Smoking Status: Former smoker Past Alcohol Use History: Abuse, Daily, Heavy Past Drug Use History: None Reported Medications and Allergies Home Medications Medication Instructions Recorded Confirmed Type Atogepant [Qulipta] 60 mg PO DAILY 02/02/24 02/02/24 History Ramelteon 8 mg PO HS PRN 02/02/24 02/02/24 History Rimegepant Sulfate [Nurtec Odt] 75 mg PO DAILY PRN MDD 75 mg 02/02/24 02/02/24 History Sertraline [Zoloft] 100 mg PO HS 02/02/24 02/02/24 History Ubrogepant [Ubrelvy] 100 mg PO BID PRN MDD 200mg 02/02/24 02/02/24 History hydrOXYzine pamoate [Vistaril] 50 mg PO HS PRN 02/02/24 02/02/24 History norethindrone-e.estradioL-iron 1 tab PO DAILY 02/02/24 02/02/24 History [Clara 24 Fe 1 mg-20 Mcg Tablet] Allergies Allergy/AdvReac Type Severity Reaction Status Date / Time Penicillins AdvReac Unknown Verified 02/02/24 10:14 Physical Examination - Vital Signs Vital Signs: Vital Signs Pulse Resp BP Pulse Ox 02/02/24 14:00 86 16 105/60 98 02/02/24 12:00 100 20 106/70 98 02/02/24 08:00 92 20 117/70 98 02/02/24 05:00 80 16 107/61 02/02/24 02:41 115 H 16 117/73 96 02/02/24 01:25 95 18 02/01/24 23:03 118 H 16 131/95 02/01/24 22:27 124 H 16 02/01/24 20:59 128 H 18 141/102 96 Patient is a young female, very pleasant, in no acute distress. Patient is alert awake oriented to time place and person. Speech and language functions are normal. Patient can name and repeat very well. No aphasia or dysarthria. Attention, concentration and fund of knowledge is adequate. On cranial nerve examination, pupils are equal, round and reacting to light, visual mckeon are full on confrontation, with no neglect on double simultaneous stimulation. Extraocular muscles are intact with no nystagmus. Face is symmetric, tongue protrudes to the midline. Palatal elevation and sensation normal, hearing and shoulder shrug normal, facial sensation normal. On muscle strength testing, there is no pronator drift and the strength is normal in arms and legs distally and proximally. Deep tendon reflexes are symmetric 1+ to 2+ and plantars are withdrawal bilaterally. Sensory to touch is equal with no neglect on double simultaneous stimulation. Cerebellar function showed no ataxia for [id number]-ga-[id number] testing. No dysdiadochokinesia. No ataxia for ofxi-wa-jwfn testing on either side. Tone and bulk of muscles normal. Gait deferred.. On general examination, there is no carotid bruit or murmur, S1-S2 audible. Chest is clear on consultation. Abdomen is soft nontender. No organomegaly, bowel sounds present. Peripheral pulses are present. No peripheral edema. Results - Laboratory Findings CBC and BMP: 02/01/24 22:05 02/03/24 08:09 Abnormal Lab Findings: Abnormal Labs 02/01/24 02/01/24 02/01/24 21:58 22:05 22:05 MCV 103.3 H MCH 35.2 H Plt Count 105 L Lymphocytes # 0.2 L Sodium 130 L Potassium Carbon Dioxide 19 L BUN 4 L Creatinine 0.41 L Glucose 139 H Plasma Lactic Acid Franco Total Bilirubin 1.8 H GGT AST 286 H ALT 97 H Urine Appearance Cloudy H Urine Protein 2+ H Urine Ketones 2+ H Urine Blood Small H Ur Leukocyte Esterase Small H Ur Squamous Epith Cells 6 H Urine Bacteria Rare H Urine Mucus Many H 02/01/24 02/01/24 02/02/24 22:05 22:05 10:46 MCV MCH Plt Count Lymphocytes # Sodium 133 L Potassium 3.3 L Carbon Dioxide BUN 4 L Creatinine 0.49 L Glucose 107 H Plasma Lactic Acid Franco 3.0 H* Total Bilirubin GGT 600 H AST ALT Urine Appearance Urine Protein Urine Ketones Urine Blood Ur Leukocyte Esterase Ur Squamous Epith Cells Urine Bacteria Urine Mucus Assessment and Plan Assessment: * New onset seizure, probable alcohol withdrawal seizure. * History of uncontrollable shakes (once) a few weeks ago, but without evolving into seizure. * History of alcoholism * Elevated blood pressures, rule out hypertension versus withdrawal related. * Elevated hepatic enzymes, likely due to alcoholism * History of migraines Plan: * EEG evaluate for epileptiform activity. * No antiepileptic medications indicated, unless EEG shows any clear epileptiform activity. * Patient was informed of [place] state law of no driving unless seizure-free for 6 months, climbing ladders, operating dangerous machinery's or unsupervise d swimming. * Management of elevated liver enzymes as per IM. * Patient's blood pressure seems to be elevated. Need to closely monitor. * Watch for delirium tremens. * Thiamine, folate, multivitamins. * Neurologically clear, if the EEG comes back normal. * Thank you for the consult.
[2024-02-03] MEDS: MAGNESIUM SULFATE-D5W PMX 1 GM in DEXTROSE/WATER 1 100ML.BAG IVPB ONE (10:16)
[2024-02-03] MEDS: POTASSIUM CHLORIDE 20 MEQ in WATER FOR INJECTION 1 100ML.BAG IVPB SCH (10:16)
[2024-02-03] MEDS: PANTOPRAZOLE 40 MG/10 ML VIAL IVP SCH (10:16)
[2024-02-03 11:03] LABS: ALT 85 U/L (4-34); AST 151 U/L (14-36); Albumin 4.7 g/dL (3.5-5.0); Alkaline Phosphatase 103 U/L (38-126); Total Bilirubin 1.4 mg/dL (0.2-1.3)
--- NOTE | 2024-02-03 12:04 | P.PN ---
Subjective Progress Note Date: 02/03/24 Patient was seen for a follow-up. Patient's father was also present today. No further seizures reported. She is feeling better. Objective - Vital Signs Vital signs: Vital Signs Temp 97.5 F L 02/03/24 07:59 Pulse 78 02/03/24 07:59 Resp 18 02/03/24 07:59 BP 134/92 02/03/24 07:59 Pulse Ox 97 02/03/24 07:59 FiO2 Intake & Output 02/02/24 02/03/24 02/03/24 18:59 06:59 18:59 Other: # Voids 2 - Exam Normal. - Labs CBC & Chem 7: 02/01/24 22:05 02/03/24 08:09 Labs: Abnormal Lab Results - Last 24 Hours (Table) 02/03/24 Range/Units 08:09 Potassium 3.3 L (3.5-5.1) mmol/L Carbon Dioxide 21 L (22-30) mmol/L BUN 5 L (7-17) mg/dL Creatinine 0.47 L (0.52-1.04) mg/dL Total Bilirubin 1.4 H (0.2-1.3) mg/dL AST 151 H (14-36) U/L ALT 85 H (4-34) U/L Microbiology - Last 24 Hours (Table) 02/01/24 21:58 Urine Culture - Final Urine,Clean Catch Assessment and Plan Assessment: * New onset seizure, probable alcohol withdrawal seizure. * History of uncontrollable shakes (once) a few weeks ago, but without evolving into seizure. * History of alcoholism * Elevated blood pressures, rule out hypertension versus withdrawal related. * Elevated hepatic enzymes, likely due to alcoholism * History of migraines Plan: * EEG was performed today, which was abnormal due to presence of excessive amount of low voltage fast frequency beta activity suggestive of medication (benzodiazepine) effect. No focal, lateralized or epileptiform activity was seen. * No indication for antiepileptic medication, as the seizure was provoked due to alcohol withdrawal. * Patient was informed of [place] state law of no driving unless seizure-free for 6 months, climbing ladders, operating dangerous machinery's or unsupervised swimming. * Liver functions are improving. * Patient's blood pressure seems to be elevated. Need to closely monitor. Blood pressure also somewhat better. * Thiamine, folate, multivitamins. * Counseled about abstinence from alcoholism. * Neurologically clear.
[2024-02-03] MEDS: POTASSIUM CHLORIDE ER 20 MEQ TAB.ER PO STA (12:26)
--- NOTE | 2024-02-03 13:05 | EEG ---
ELECTROENCEPHALOGRAM REPORT PREAMBLE: This is a 23-year-old female with new-onset seizure. EEG FINDINGS: This is a 21-channel digital EEG recorded with video component, utilizing 10/20 international system with referential and bipolar montages. Background consists of moderately well-developed and regulated, predominantly low-voltage fast frequency beta activity seen in bihemispheric region. Background is posterior dominant and seems to be slightly reactive to eye opening and closing. Photic driving response was not seen. Hyperventilation was not done. Some drowsiness was seen with presence of bilaterally symmetric theta frequency rhythm mainly in temporal regions. Deeper stages of sleep were not seen. No focal or generalized epileptiform activity was seen. IMPRESSION: This is a mildly abnormal EEG due to presence of excessive amount of low-voltage fast frequency beta activity suggestive of medication effect. No focal, lateralized or epileptiform activity was seen. MMGABRIELLA / IJLizz: [id number] / MTDD
--- NOTE | 2024-02-03 15:21 | P.CN ---
Psychiatric Consult - . Consult date: 02/03/24 Consult:: I attempted to see this patient in the ER at around 3:10 pm today but she had already been discharged home.
--- NOTE | 2024-02-03 15:38 | CDI ---
Documentation Clarification Form Date: 02/03/2024 03:19:49 PM From: Gabby Douglas RN, CCDS Phone: [phone] Admit Date: 02/01/2024 10:39:00 PM Patient Name: Luiza Macedo Visit Number: [id number] Discharge Date: ATTENTION: The Clinical Documentation Specialists (CDI) and [facility] Coding Staff appreciate your assistance in clarifying documentation. Please respond to the clarification below the line at the bottom and electronically sign. The CDI & [facility] Coding staff will review the response and follow-up if needed. Please note: Queries are made part of the Legal Health Record. If you have any questions, please contact the author of this message via ITS. Dr. Benjamin Barry Your patient has an abnormal lab value: Lactic acid 3.0. Please clarify if there is an additional diagnosis and/or clinical significance related to this value. History/Risk Factors: Anxiety, Depression, Alcohol use: Abuse, daily, heavy, Former smoker Clinical indicators: 23-year-old female past medical history significant for alcohol abuse and migraine presenting to the ED with a chief complaint of possible seizure. 01/31 VS 141/102 128 18, 131/95 118 16 01/31 Labs: Na+ 130 Lactic acid 3.0, Treatment: Director Of Rehabilitative Services/Telemetry .9 NS 1,000 MLS Bolus 01/31-01/31 D5/NS IV @ 100 ML/HR 01/31-02/02 Is there an additional diagnosis and/or clinical significance related to the above lab result/information? [ X] Acute Lactic acidosis [ ] No additional diagnosis/Not clinically significant [ ] Other, please specify [ ] Unable to determine (Template Last Revised: November 2020) MTDD
--- NOTE | 2024-02-04 14:26 | P.DS ---
Providers Date of admission: 02/01/24 22:39 Expected date of discharge: 02/03/24 Attending physician: Benjamin Beth Consults: 02/01/24 23:43 Consult Physician Urgent Consulting Provider: Conner Cavazos Consult Reason/Comments: Alcohol withdrawal. Seizure. No hx seizure. Likely 2' to withdrawal Do you want consulting provider notified?: Yes 02/03/24 08:18 Consult Physician Routine Consulting Provider: Jl Prescott Consult Reason/Comments: depression,anxiety, panic attacks Do you want consulting provider notified?: Yes Primary care physician: Benjamin Barry Hospital Course: Final diagnoses New onset seizure, suspect alcohol withdrawal seizure, neurology following. Both patient and father have been instructed that per [place] state law no driv ing until she has been seizure-free for 6 months. Alcohol withdrawal, DTs Alcohol dependence, reports drinks 1 pint daily of seltzers or vodka; alcohol abstinence reinforced, recommending inpatient rehab be arranged this week. Elevated LFTs with a T. bili of 1.8 on admission, likely secondary to the above ,improving Lactic acidosis, 3 on admission currently down to 1.2 Reports history of anxiety, depression, panic attacks History of migraines Ongoing vaping, counseled on cessation Hospital course: This is a 23-year-old female with history of alcoholism, vaping ,anxiety, depression, panic attacks, lives at home with her parents. Reports she started drinking around age 18 or 19 and currently drinks 1 pint daily of seltzers or vodka. Previously following with a psychiatrist, last seen about a year ago. Has been following with a counselor at [facility] for over the last 2-3 months, since her previous withdrawal occurrence 11/29/2023. Patient reports she drinks mostly in her bedroom. Discussed with both patient and father that psychiatry consulted. Father adamant that they will not wait to see a psychiatrist if she has to remain in the ER another night.Father retorted that his daughter "would not get better in this room". Continues on CIWA protocol,CIWA score 6, fine tremors. Denies lightheadedness dizziness or focal deficits. Denies headache. denies chest pain, palpitations or shortness of breath. Evaluated at lunchtime per Dr. Beth PCP. Dr. Beth discussed with both father and patient, the patient needs rehab him most likely inpatient rehab. very soon and that patient should call this week, secure arrangements to attend as soon as possible. Father and patient verbalized not wanting to wait to be evaluated by psychiatry and they want be discharged home. Patient states she is not suicidal or homicidal. Dr. Shin,PCP gave orders to proceed with discharge,now. Dr. Beth will be calling in Valium Rx from the office with instructions that patient is to come into his office on with regular appointments for tapering of Valium. Reinforced that per [place] state law no driving until patient has been seizure-free for 6 months. Both father and patient verbalized understanding and replied they would be compliant. Vaping cessation and alcohol abstinence reinforced. Patient will be discharged home in a stable condition with guarded prognosis. Please refer to EHR for full reports regarding this admission as documented by admitting PCP and neurology. The impression and plan of care has been dictated as directed. : I performed a history and examination of this patient, discussed the same with the dictator. I agree with the dictator's note ,documented as a scribe. Any additional findings or plans will be noted. Patient Condition at Discharge: Stable Plan - Discharge Summary New Discharge Prescriptions: New Folic Acid 1 mg PO DAILY tab Multivitamin [Multivitamins Adult Gummies] 1 each PO DAILY #30 tab Thiamine [Vitamin B-1] 100 mg PO DAILY tab Continue norethindrone-e.estradioL-iron [Clara 24 Fe 1 mg-20 Mcg Tablet] 1 tab PO DAILY Ubrogepant [Ubrelvy] 100 mg PO BID PRN MDD 200mg PRN Reason: Migraine Headache Ramelteon 8 mg PO HS PRN PRN Reason: sleep Rimegepant Sulfate [Nurtec Odt] 75 mg PO DAILY PRN MDD 75 mg PRN Reason: Migraine Headache hydrOXYzine pamoate [Vistaril] 50 mg PO HS PRN PRN Reason: Anxiety Sertraline [Zoloft] 100 mg PO HS Atogepant [Qulipta] 60 mg PO DAILY Discharge Medication List Atogepant [Qulipta] 60 mg PO DAILY 02/02/24 [History] Ramelteon 8 mg PO HS PRN 02/02/24 [History] Rimegepant Sulfate [Nurtec Odt] 75 mg PO DAILY PRN MDD 75 mg 02/02/24 [History] Sertraline [Zoloft] 100 mg PO HS 02/02/24 [History] Ubrogepant [Ubrelvy] 100 mg PO BID PRN MDD 200mg 02/02/24 [History] hydrOXYzine pamoate [Vistaril] 50 mg PO HS PRN 02/02/24 [History] norethindrone-e.estradioL-iron [Clara 24 Fe 1 mg-20 Mcg Tablet] 1 tab PO DAILY 02/02/24 [History] Folic Acid 1 mg PO DAILY tab 02/03/24 [Rx] Multivitamin [Multivitamins Adult Gummies] 1 each PO DAILY #30 tab 02/03/24 [Rx] Thiamine [Vitamin B-1] 100 mg PO DAILY tab 02/03/24 [Rx] Follow up Appointment(s)/Referral(s): Sachin Beth Jr, [Doctor of Osteopathic Medicine] - 3 Days Patient Instructions/Handouts: Epilepsy (DC), Alcohol Withdrawal (DC) Activity/Diet/Wound Care/Special Instructions: valium 10mg tid * RX being called in from Dr. Beth's office) Discharge Disposition: HOME SELF-CARE
== END 2024-02-03 13:55 | disposition home or self-care (01) | DRG 101 ==
LOC: EC 20:56 → 4SSUR 22:39 → 3SCARD 02-02 12:50
PROVIDERS: ADMIT Family Medicine; ATTEND Family Medicine
DX: R56.9 Unspecified convulsions (principal); F10.239 Alcohol dependence with withdrawal, unspecified; E87.21 Acute metabolic acidosis; R03.0 Elevated blood-pressure reading, without diagnosis of hypertension; F32.A Depression, unspecified; F41.9 Anxiety disorder, unspecified; H92.01 Otalgia, right ear; G43.909 Migraine, unspecified, not intractable, without status migrainosus; Z88.0 Allergy status to penicillin; Z87.891 Personal history of nicotine dependence
CPT/HCPCS: 36415; 80048; 80053; 80306; 80320; 81001; 81025; 82977; 83605; 83735; 84100; 85025; 87086; 95816; 96361; 96365; 96366; 96368; 96372; 96375; 96376; 99285

== ENCOUNTER 2024-06-27 19:31 | Observation (INO) | payer OTHER ==
--- NOTE | 2024-06-27 20:29 | ED ---
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 Mother reports patient has been sober for several months, however started d rinking again several days ago. Mother reports patient was "passed out drunk" yesterday. She states today patient has been acting abnormally and not been feeling well. Mother is concerned as last time patient had a grand mal seizure during alcohol withdrawal. (Niya Ramirez) This is a 23-year-old female to ER for severe alcohol intoxication (Pierce Beth) - Related Data Home Medications Medication Instructions Recorded Confirmed Ramelteon 8 mg PO HS PRN 02/02/24 06/28/24 Rimegepant Sulfate [Nurtec Odt] 75 mg PO DAILY PRN MDD 75 mg 02/02/24 06/28/24 Ubrogepant [Ubrelvy] 100 mg PO BID PRN MDD 200mg 02/02/24 06/28/24 norethindrone-e.estradioL-iron 1 tab PO DAILY 02/02/24 06/28/24 [Clara 24 Fe 1 mg-20 Mcg Tablet] Multivitamin [Multivitamins Adult 1 tab PO DAILY 06/28/24 06/28/24 Gummies] cloNIDine HCL 0.1 mg PO DAILY 06/28/24 06/28/24 hydrOXYzine pamoate [Vistaril] 50 mg PO HS PRN 06/28/24 06/28/24 Previous Rx's Medication Instructions Recorded Thiamine [Vitamin B-1] 100 mg PO DAILY tab 02/03/24 Sertraline HCl [Zoloft] 50 mg PO HS #30 tablet 06/29/24 Allergies Allergy/AdvReac Type Severity Reaction Status Date / Time Penicillins AdvReac Unknown Verified 06/28/24 10:54 Review of Systems ROS Other: All systems not noted in ROS Statement are negative. <Niya Ramirez - Last Filed: 06/27/24 20:26> ROS Other: All systems not noted in ROS Statement are negative. <Pierce Beth - Last Filed: 07/16/24 16:57> ROS Statement: Those systems with pertinent positive or pertinent negative responses have been documented in the HPI. Past Medical History Past Medical History: No Reported History History of Any Multi-Drug Resistant Organisms: None Reported Past Surgical History: No Surgical Hx Reported Past Psychological History: Anxiety, Depression Smoking Status: Former smoker Past Alcohol Use History: Abuse, Daily, Heavy Past Drug Use History: None Reported <Niya Ramirez - Last Filed: 06/27/24 20:26> General Exam Limitations: no limitations <Niya Ramirez - Last Filed: 06/27/24 20:26> General appearance: alert, appears intoxicated, anxious Head exam: Present: atraumatic, normocephalic, normal inspection Eye exam: Present: normal appearance, PERRL, EOMI. Absent: scleral icterus, conjunctival injection, periorbital swelling ENT exam: Present: normal exam, mucous membranes moist Neck exam: Present: normal inspection. Absent: tenderness, meningismus, lymphadenopathy Respiratory exam: Present: normal lung sounds bilaterally. Absent: respiratory distress, wheezes, rales, rhonchi, stridor Cardiovascular Exam: Present: regular rate, normal rhythm, normal heart sounds. Absent: systolic murmur, diastolic murmur, rubs, gallop, clicks GI/Abdominal exam: Present: soft, normal bowel sounds. Absent: distended, tenderness, guarding, rebound, rigid Extremities exam: Present: normal inspection, full ROM, normal capillary refill. Absent: tenderness, pedal edema, joint swelling, calf tenderness Back exam: Present: normal inspection Neurological exam: Present: alert, oriented X3, CN II-XII intact Psychiatric exam: Present: normal affect, normal mood Skin exam: Present: warm, dry, intact, normal color. Absent: rash <Pierce Beth - Last Filed: 07/16/24 16:57> - General Exam Comments Initial Comments: Visual Physical Exam Vital signs reviewed General: Well-appearing, nontoxic, no acute distress. Head: Normocephalic, atraumatic Eyes: PERRLA, EOMI ENT: Airway patent Chest: Nonlabored breathing Skin: No visual rash, normal skin tone Neuro: Alert and oriented 3 Musculoskeletal: No gross abnormalities (Niya Ramirez) Course <Pierce Beth - Last Filed: 07/16/24 16:57> Vital Signs 06/27/24 06/28/24 06/28/24 19:52 01:09 01:10 Temperature 97.9 F 97.8 F Pulse Rate 110 H Pulse Rate [ 102 H 102 H Pulse Oximetery ] Respiratory 22 18 18 Rate Blood Pressure 124/74 Blood Pressure 105/69 [Right Arm] O2 Sat by Pulse 97 99 Oximetry 06/28/24 06/28/24 06/28/24 02:00 03:51 07:50 Temperature 97.6 F 97.7 F Pulse Rate Pulse Rate [ 102 H 61 102 H Pulse Oximetery ] Respiratory 18 18 14 Rate Blood Pressure Blood Pressure 90/52 112/72 [Right Arm] O2 Sat by Pulse 98 100 Oximetry - Reevaluation(s) Reevaluation #1: 06/28/24 00:15 Medical records reviewed (Pierce Beth) Reevaluation #2: 06/28/24 00:15 Symptoms unchanged (Pierce Beth) Reevaluation #3: 06/28/24 00:16 Informed of results and questions answered (Pierce Beth) Reevaluation #4: Was pt. sent in by a medical professional or institution (, PA, [employer]N [employer]PER, urgent care, hospital, or intermediate...) When possible be specific @ -no Did you speak to anyone other than the patient for history (EMS, parent, family, police, friend...)? What history was obtained from this source @ -no Did you review nursing and triage notes (agree or disagree)? Why? @ -agree Are old charts reviewed (outside hosp., previous admission, EMS record, old EKG, old radiological studies, urgent care reports/EKG's, intermediate records)? Report findings @ -yes Differential Diagnosis (chest pain, altered mental status, abdominal pain women, abdominal pain men, vaginal bleeding, weakness, fever, dyspnea, syncope, headache, dizziness, GI bleed, back pain, seizure, CVA, palpatations, mental health, musculoskeletal)? @ -prior EKG interpreted by me (3pts min.). @ -yes X-rays interpreted by me (1pt min.). @ -no CT interpreted by me (1pt min.). @ -no U/S interpreted by me (1pt. min.). @ -no What testing was considered but not performed or refused? (CT, X-rays, U/S, labs)? Why? @ -none What meds were considered but not given or refused? Why? @ -none Did you discuss the management of the patient with other professionals (professionals i.e. , PA, [employer], lab, RT, psych nurse, social media manager, machine clerical verifier, teacher, stream control officer, manager of case)? Give summary @ -no Was smoking cessation discussed for >3mins.? @ -no Was critical care preformed (if so, how long)? @ -no Were there social determinants of health that impacted care today? How? (Homelessness, low income, unemployed, alcoholism, drug addiction, transportation, low edu. Level, literacy, decrease access to med. care, correction, rehab)? @ -none Was there de-escalation of care discussed even if they declined (Discuss DNR or withdrawal of care, Hospice)? DNR status @ -no What co-morbidities impacted this encounter? (DM, HTN, Smoking, COPD, CAD, Cancer, CVA, ARF, Chemo, Hep., AIDS, mental health diagnosis, sleep apnea, morbid obesity)? @ -none Was patient admitted / discharged? Hospital course, mention meds given and route, prescriptions, significant lab abnormalities, going to OR and other pertinent info. @ - 23 Female with severe alcohol intoxication, patient will be admitted for continued monitoring, resuscitation admitted Undiagnosed new problem with uncertain prognosis? @ -no Drug Therapy requiring intensive monitoring for toxicity (Heparin, Nitro, Insulin, Cardizem)? @ -no Were any procedures done? @ -no Diagnosis/symptom? @ -Alcohol withdrawal Acute, or Chronic, or Acute on Chronic? @ -Acute Uncomplicated (without systemic symptoms) or Complicated (systemic symptoms)? @ -Complicated Side effects of treatment? @ -no Exacerbation, Progression, or Severe Exacerbation? @ -exacerbation Poses a threat to life or bodily function? How? (Chest pain, [place], [place], pneumonia, PE, COPD, DKA, ARF, appy, cholecystitis, CVA, Diverticulitis, Homicidal, Suicidal, threat to staff... and all critical care pts) @ -yes with severe withdrawal (Pierce Beth) Reevaluation #5: Differential Altered Mental Status: Hypoglycemia, DKA, hypercapnia, ETOH, overdose, CO poisoning, trauma, myxedema coma, HTN encephalopathy, infection, encephalitis, psychosis, intercranial hemorrhage, hepatic encephalopathy, meningitis, CVA, this is not meant to be an all-inclusive list (Pierce Beth) - Consultations Consultation #1: With Dr. Barry who agrees to admit this patient (Pierce Beth) Medical Decision Making <Niya Ramirez - Last Filed: 06/27/24 20:26> - Lab Data Result diagrams: 06/29/24 03:44 06/29/24 03:44 - EKG Data -: EKG Interpreted by Me (EKG is sinus tachycardia 117 WI 119 QRS QTc 401) <Pierce Beth - Last Filed: 07/16/24 16:57> - Medical Decision Making I completed the quick note portion of this chart signed Niya Ramirez PA-C (Niya Ramirez) 23 Female with severe alcohol intoxication, patient will be admitted for continued monitoring, resuscitation (Pierce Beth) - Lab Data Lab Results 06/27/24 06/27/24 06/27/24 Range/Units 20:11 20:11 20:11 WBC 5.8 (3.8-10.6) k/uL RBC 4.38 (3.80-5.40) m/uL Hgb 13.7 (11.4-16.0) gm/dL Hct 41.3 (34.0-46.0) % MCV 94.3 (80.0-100.0) fL MCH 31.4 (25.0-35.0) pg MCHC 33.3 (31.0-37.0) g/dL RDW 12.9 (11.5-15.5) % Plt Count 259 (150-450) k/uL MPV 7.0 Neutrophils % 68 % Lymphocytes % 25 % Monocytes % 4 % Eosinophils % 1 % Basophils % 1 % Neutrophils # 4.0 (1.3-7.7) k/uL Lymphocytes # 1.5 (1.0-4.8) k/uL Monocytes # 0.2 (0-1.0) k/uL Eosinophils # 0.0 (0-0.7) k/uL Basophils # 0.0 (0-0.2) k/uL Sodium 147 H (137-145) mmol/L Potassium 3.4 L (3.5-5.1) mmol/L Chloride 105 (98-107) mmol/L Carbon Dioxide 26 (22-30) mmol/L Anion Gap 16 mmol/L BUN 8 (7-17) mg/dL Creatinine 0.53 (0.52-1.04) mg/dL Est GFR (CKD-EPI)AfAm >90 (>60 ml/min/1.73 sqM) Est GFR (CKD-EPI)NonAf >90 (>60 ml/min/1.73 sqM) Glucose 98 (74-99) mg/dL Calcium 9.5 (8.4-10.2) mg/dL Total Bilirubin 1.3 (0.2-1.3) mg/dL AST 41 H (14-36) U/L ALT 20 (4-34) U/L Alkaline Phosphatase 69 (38-126) U/L Total Protein 8.0 (6.3-8.2) g/dL Albumin 5.1 H (3.5-5.0) g/dL Serum Alcohol 430 H* mg/dL Disposition <Niya Ramirez - Last Filed: 06/27/24 20:26> Time of Disposition: 00:10 <Pierce Beth - Last Filed: 07/16/24 16:57> Clinical Impression: Alcoholic intoxication Disposition: ADMITTED IP TO THIS HOSP Condition: Stable
[2024-06-27 20:34] LABS: Basophils % (A) 1 %; Eosinophils % (A) 1 %; HCT 41.3 % (34.0-46.0); HGB 13.7 gm/dL (11.4-16.0); Lymphocytes # (A) 1.5 k/uL (1.0-4.8); Lymphocytes % (A) 25 %; MCH 31.4 pg (25.0-35.0); MCHC 33.3 g/dL (31.0-37.0); MCV 94.3 fL (80.0-100.0); Monocytes # (A) 0.2 k/uL (0-1.0); Monocytes % (A) 4 %; Neutrophils % (A) 68 %; Platelet Count 259 k/uL (150-450); RBC 4.38 m/uL (3.80-5.40); RDW 12.9 % (11.5-15.5); WBC 5.8 k/uL (3.8-10.6)
[2024-06-27 20:54] LABS: African American GFR (CKD) >90 (>60 ml/min/1.73 sqM); Albumin 5.1 g/dL (3.5-5.0); Alkaline Phosphatase 69 U/L (38-126); Calcium 9.5 mg/dL (8.4-10.2); Carbon Dioxide 26 mmol/L (22-30); Non-African American GFR(CKD) >90 (>60 ml/min/1.73 sqM); Total Bilirubin 1.3 mg/dL (0.2-1.3)
[2024-06-27 20:55] LABS: AST 41 U/L (14-36)
[2024-06-27 21:38] LABS: ALT 20 U/L (4-34); Anion Gap 16 mmol/L; Blood Urea Nitrogen 8 mg/dL (7-17); Chloride 105 mmol/L (98-107); Glucose 98 mg/dL (74-99); Potassium 3.4 mmol/L (3.5-5.1); Sodium 147 mmol/L (137-145)
[2024-06-28] MEDS ORDERED: ONDANSETRON 4 MG/2 ML VIAL IVP PRN (00:13)
[2024-06-28] MEDS ORDERED: LORazepam 2 MG/ML INJ IV PRN ×3 (00:13)
[2024-06-28] MEDS ORDERED: HYDROmorphone 1 MG/ML 1 ML SYRINGE IVP PRN (00:13)
[2024-06-28] MEDS ORDERED: NALOXONE 0.4 MG/ML 1 ML VIAL IV PRN (00:13)
[2024-06-28] MEDS ORDERED: LORazepam 1 MG TAB PO PRN ×4 (00:13)
[2024-06-28] MEDS ORDERED: LORazepam 0.5 MG TAB PO PRN (00:13)
[2024-06-28] MEDS: LORazepam 2 MG/ML INJ IV STA (00:43)
[2024-06-28] MEDS: SODIUM CHLORIDE 0.9% 1,000 ML IV STA ×2 (00:44→00:45)
[2024-06-28] MEDS: SODIUM CHLORIDE 0.9% 500 ML 500 ML IV STA (00:44)
[2024-06-28 01:47] LABS: Magnesium 1.6 mg/dL (1.6-2.3); Phosphorus 3.8 mg/dL (2.5-4.5)
[2024-06-28] MEDS ORDERED: Potassium Replacement Protocol 1 EACH MISC MISCELLANE PRN (06:18)
[2024-06-28] MEDS ORDERED: Magnesium Replacement Protocol 1 EACH MISC MISCELLANE PRN (06:19)
[2024-06-28] MEDS: POTASSIUM CHLORIDE ER 20 MEQ TAB.ER PO SCH (06:33)
[2024-06-28] MEDS: MAGNESIUM SULFATE-D5W PMX 1 GM in DEXTROSE/WATER 1 100ML.BAG IVPB SCH (06:36)
[2024-06-28] MEDS ORDERED: TEMAZEPAM 15 MG CAP PO PRN (10:48)
--- NOTE | 2024-06-28 11:03 | P.HPIM ---
History of Present Illness H&P Date: 06/28/24 Chief Complaint: alcohol withdrawal patient had been sober for approximately 8 months is currently using Vivitrol, apparently missed her last dose and started drinking, was seen in the emergency room alcohol level was apparently 400 at that time, admitted for detox this victor m ent has been a serious drinker approximately since she was 15 years old Review of Systems Constitutional: Reports chronic headaches, Reports malaise Ears, nose, mouth and throat: Reports as per HPI Cardiovascular: Reports as per HPI Respiratory: Reports as per HPI Gastrointestinal: Reports dyspepsia Genitourinary: Reports as per HPI Menstruation: Reports period normal Musculoskeletal: Reports myalgias Integumentary: Reports as per HPI Neurological: Reports confusion (alcoholism, depression, anxiety) Psychiatric: Reports as per HPI (alcoholism, depression, anxiety) Endocrine: Reports as per HPI Past Medical History Past Medical History: No Reported History Additional Past Medical History / Comment(s): alcoholism, depression, anxiety History of Any Multi-Drug Resistant Organisms: None Reported Past Surgical History: No Surgical Hx Reported Past Psychological History: Anxiety, Depression Smoking Status: Former smoker Past Alcohol Use History: Abuse, Daily, Heavy Past Drug Use History: None Reported Medications and Allergies Home Medications Medication Instructions Recorded Confirmed Type Atogepant [Qulipta] 60 mg PO DAILY 02/02/24 02/02/24 History Ramelteon 8 mg PO HS PRN 02/02/24 06/28/24 History Rimegepant Sulfate [Nurtec Odt] 75 mg PO DAILY PRN MDD 75 mg 02/02/24 02/02/24 History Ubrogepant [Ubrelvy] 100 mg PO BID PRN MDD 200mg 02/02/24 06/28/24 History norethindrone-e.estradioL-iron 1 tab PO DAILY 02/02/24 06/28/24 History [Clara 24 Fe 1 mg-20 Mcg Tablet] Folic Acid 1 mg PO DAILY tab 02/03/24 Rx Thiamine [Vitamin B-1] 100 mg PO DAILY tab 02/03/24 06/28/24 Rx Multivitamin [Multivitamins Adult 1 tab PO DAILY 06/28/24 06/28/24 History Gummies] cloNIDine HCL 0.1 mg PO DAILY 06/28/24 06/28/24 History Allergies Allergy/AdvReac Type Severity Reaction Status Date / Time Penicillins AdvReac Unknown Verified 06/28/24 10:54 Physical Exam Osteopathic Statement: *. No significant issues noted on an osteopathic structural exam other than those noted in the History and Physical/Consult. Vitals: Vital Signs Temp Pulse Pulse Resp BP BP Pulse Ox 06/28/24 07:50 97.7 F 102 H 14 112/72 100 06/28/24 03:51 97.6 F 61 18 90/52 98 06/28/24 02:00 102 H 18 06/28/24 01:10 102 H 18 06/28/24 01:09 97.8 F 102 H 18 105/69 99 06/27/24 19:52 97.9 F 110 H 22 124/74 97 Intake and Output 06/27/24 06/28/24 06/28/24 22:59 06:59 14:59 Intake Total 300 118 Balance 300 118 Intake: Intake, IV Titration 300 Amount Sodium Chloride 0.9% 1, 300 000 ml @ 100 mls/hr IV . Q10H STA Rx#:[id number] Oral 118 Other: Voiding Method Toilet Toilet # Voids 1 Weight 45.359 kg General: [Patient awake, alert and oriented times 3. Patient in no acute distress.] HEENT: [PERRL. EOMI. No pharyngeal erythema or exudate.] Neck: [No adenopathy.] Cardiac: [Heart regular in rate and rhythm. No S3. No S4. No clicks, rubs. No murmur.] Lungs: [Clear to auscultation bilaterally.] Abdomen: [No mass. No organomegaly. Bowel sounds presnt and normoactive in all 4 quadrants.] Extremes: [No edema no cyanosis no claudication normal pulses] : normal female genitalia Musculoskeletal: [No joint erythema, edema or tenderness.] Skin: [No rash.] Neurologic: [No lateralizing deficits. CN II - XII grossly intact.] Lymphatic: [No adenopathy.] Results CBC & Chem 7: 06/27/24 20:11 06/27/24 20:11 Labs: Abnormal Lab Results - Last 24 Hours (Table) 06/27/24 06/27/24 Range/Units 20:11 20:11 Sodium 147 H (137-145) mmol/L Potassium 3.4 L (3.5-5.1) mmol/L AST 41 H (14-36) U/L Albumin 5.1 H (3.5-5.0) g/dL Serum Alcohol 430 H* mg/dL Thrombosis Risk Factor Assmnt - DVT/VTE Prophylaxis DVT/VTE Prophylaxis: Low risk, early ambulation encouraged Assessment and Plan (1) Alcohol withdrawal seizure Current Visit: Yes Status: Acute Code(s): F10.939 - ALCOHOL USE, UNSPECIFIED WITH WITHDRAWAL, UNSPECIFIED; R56.9 - UNSPECIFIED CONVULSIONS SNOMED Code(s): 739144645 (2) Alcoholic intoxication Current Visit: Yes Status: Acute Code(s): F10.929 - ALCOHOL USE, UNSPECIFIED WITH INTOXICATION, UNSPECIFIED SNOMED Code(s): 66381767 (3) Alcohol withdrawal Current Visit: No Status: Acute Code(s): F10.939 - ALCOHOL USE, UNSPECIFIED WITH WITHDRAWAL, UNSPECIFIED SNOMED Code(s): 890687010 Plan: patient admitted to the hospital Currently on Cwa protocol aggressive rehydration encourage oral intake recommend psychiatry eval Time with Patient: Greater than 30
[2024-06-28] MEDS: SERTRALINE 100 MG TAB PO SCH (22:14)
[2024-06-28] MEDS: ACETAMINOPHEN TAB 325 MG TAB PO PRN (23:56)
[2024-06-29] MEDS: MULTIVITAMINS, THERA 1 EACH TAB PO SCH (08:49)
[2024-06-29] MEDS: FOLIC ACID 1 MG TAB PO SCH (08:49)
[2024-06-29 09:14] LABS: ALT 15 U/L (8-44); AST 26 U/L (13-35); Albumin 4.2 g/dL (3.8-4.9); Albumin/Globulin Ratio 1.91 Ratio (1.60-3.17); Alkaline Phosphatase 76 U/L (41-126); Blood Urea Nitrogen 7.1 mg/dL (9.0-27.0); Calcium 9.1 mg/dL (8.7-10.3); Carbon Dioxide 27.1 mmol/L (21.6-31.8); Chloride 106 mmol/L (96-109); Globulin 2.2 g/dL (1.6-3.3); Glucose 89 mg/dL (70-110); Magnesium 2.2 mg/dL (1.5-2.4); Phosphorus 4.7 mg/dL (2.4-5.1); Potassium 4.1 mmol/L (3.5-5.5); Sodium 143 mmol/L (135-145); Total Protein 6.4 g/dL (6.2-8.2)
[2024-06-29 09:42] LABS: Basophils # (A) 0.02 X 10*3/uL (0.00-0.10); Basophils % (A) 0.4 %; Eosinophils # (A) 0.12 X 10*3/uL (0.04-0.35); Eosinophils % (A) 2.5 %; HCT 37.7 % (37.2-46.3); HGB 12.2 g/dL (12.0-15.0); Lymphocytes # (A) 1.35 X 10*3/uL (0.90-5.00); Lymphocytes % (A) 27.7 %; MCH 31.8 pg (27.0-32.0); MCHC 32.4 g/dL (32.0-37.0); MCV 98.2 FL (80.0-97.0); Mean Platelet Volume 10.8 FL (9.5-12.2); Monocytes # (A) 0.46 X 10*3/uL (0.20-1.00); Monocytes % (A) 9.4 %; NRBC Per 100 WBC 0 X 10*3/uL (0.00-0.01); Neutrophils # (A) 2.92 X 10*3/uL (1.80-7.70); Neutrophils % (A) 59.8 %; Platelet Count 198 X 10*3/uL (140-440); RBC 3.84 X 10*6/uL (4.10-5.20); RDW 12.8 % (11.5-14.5); WBC 4.88 X 10*3/uL (4.50-10.00)
--- NOTE | 2024-06-29 13:29 | P.DS ---
Providers Date of admission: 06/28/24 00:13 Expected date of discharge: 06/29/24 Attending physician: Benjamin Barry Consults: 06/28/24 10:46 Consult Physician Routine Consulting Provider: Jl Prescott Consult Reason/Comments: alcohol intoxication,anxiety,depression, panic attacks Do you want consulting provider notified?: Yes Primary care physician: Benjamin Barry Hospital Course: Final Diagnoses: (1) Alcohol withdrawal seizure Current Visit: Yes Status: Acute Code(s): F10.939 - ALCOHOL USE, UNSPECIFIED WITH WITHDRAWAL, UNSPECIFIED; R56.9 - UNSPECIFIED CONVULSIONS SNOMED Code(s): 776476470 (2) Alcoholic intoxication Current Visit: Yes Status: Acute Code(s): F10.929 - ALCOHOL USE, UNSPECIFIED WITH INTOXICATION, UNSPECIFIED SNOMED Code(s): 34040329 (3) Alcohol withdrawal Current Visit: No Status: Acute Code(s): F10.939 - ALCOHOL USE, UNSPECIFIED WITH WITHDRAWAL, UNSPECIFIED SNOMED Code(s): 224091543 Hospital course:patient had been sober for approximately 8 months is currently using Vivitrol, apparently missed her last dose and started drinking, was seen in the emergency room alcohol level was apparently 400 at that time, admitted for detox this patient has been a serious drinker approximately since she was 15 years old Maintain on IV fluid resuscitation, CIWA protocol with significant clinical improvement. CIWA score 1. Denies any chest pain, palpitations or shortness of breath. Denies any lightheadedness, dizziness or focal deficits. Denies nausea or vomiting. No tremors. Vital signs stable , no tachycardia .psychiatry evaluation recommended. patient will be discharged home today in a stable condition with guarded prognosis. Patient has been advised she can resume Vivitrol in clinic. Appointment with PCP this Saturday. The impression and plan of care has been dictated as directed. : I performed a history and examination of this patient, discussed the same with the dictator. I agree with the dictator's note ,documented as a scribe. Any additional findings or plans will be noted. Patient Condition at Discharge: Stable Plan - Discharge Summary Discharge Rx Participant: No New Discharge Prescriptions: Continue norethindrone-e.estradioL-iron [Clara 24 Fe 1 mg-20 Mcg Tablet] 1 tab PO DAILY Ubrogepant [Ubrelvy] 100 mg PO BID PRN MDD 200mg PRN Reason: Migraine Headache Ramelteon 8 mg PO HS PRN PRN Reason: sleep Rimegepant Sulfate [Nurtec Odt] 75 mg PO DAILY PRN MDD 75 mg PRN Reason: Migraine Headache Thiamine [Vitamin B-1] 100 mg PO DAILY tab Multivitamin [Multivitamins Adult Gummies] 1 tab PO DAILY cloNIDine HCL 0.1 mg PO DAILY hydrOXYzine pamoate [Vistaril] 50 mg PO HS PRN PRN Reason: SLEEP/ANXIETY Discharge Medication List Ramelteon 8 mg PO HS PRN 02/02/24 [History] Rimegepant Sulfate [Nurtec Odt] 75 mg PO DAILY PRN MDD 75 mg 02/02/24 [History] Ubrogepant [Ubrelvy] 100 mg PO BID PRN MDD 200mg 02/02/24 [History] norethindrone-e.estradioL-iron [Clara 24 Fe 1 mg-20 Mcg Tablet] 1 tab PO DAILY 02/02/24 [History] Thiamine [Vitamin B-1] 100 mg PO DAILY tab 02/03/24 [Rx] Multivitamin [Multivitamins Adult Gummies] 1 tab PO DAILY 06/28/24 [History] cloNIDine HCL 0.1 mg PO DAILY 06/28/24 [History] hydrOXYzine pamoate [Vistaril] 50 mg PO HS PRN 06/28/24 [History] Follow up Appointment(s)/Referral(s): Sachin Beth Jr, [Doctor of Osteopathic Medicine] - 07/01/24 Activity/Diet/Wound Care/Special Instructions: patient may be discharged home if pt. declines PSY. eval Discharge/Stand Alone Forms: AA Meetings [address] - [facility], AA Meetings [place], Who Do I Call?, Community Resources, Outpatient Counseling, Inp Substance Abuse Facilities
[2024-06-29] MEDS ORDERED: hydrOXYzine pamoate 25 MG CAP PO PRN (13:38)
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
[2024-06-29 14:41] VITALS: BP 115/72; PULSE 88; RESP 18; TEMP 98.8
[2024-06-29] MEDS ORDERED: SERTRALINE 50 MG TAB PO SCH (21:00)
== END 2024-06-29 15:04 | disposition home or self-care (01) ==
LOC: EC 19:31 → 5NMEDONC 06-28 00:13 → 6NMEDSUR 06-28 00:48
PROVIDERS: ADMIT Family Medicine; ATTEND Family Medicine
DX: F10.239 Alcohol dependence with withdrawal, unspecified (principal); F10.229 Alcohol dependence with intoxication, unspecified; T50.7X6A Underdosing of analeptics and opioid receptor antagonists, initial encounter; Z91.128 Patient's intentional underdosing of medication regimen for other reason; Z91.148 Patient's other noncompliance with medication regimen for other reason; F41.1 Generalized anxiety disorder; F41.0 Panic disorder [episodic paroxysmal anxiety]; F32.A Depression, unspecified; Y90.8 Blood alcohol level of 240 mg/100 ml or more; F17.290 Nicotine dependence, other tobacco product, uncomplicated; Z79.3 Long term (current) use of hormonal contraceptives; Z79.899 Other long term (current) drug therapy; Z88.0 Allergy status to penicillin
CPT/HCPCS: 36415; 80053; 80320; 83690; 83735; 84100; 85025; 93005; 96361; 96365; 96366; 99285

== ENCOUNTER → 2025-04-15 | Outpatient (CLI) | payer BC ==
--- NOTE | 2025-04-15 14:31 | US ---
EXAMINATION TYPE: US pelvis complete transvag DATE OF EXAM: 04/15/2025 COMPARISON: US 2016 CLINICAL INDICATION: Female, 24 years old with history of N92.1 EXCESSIVE AND FREQUENT MENSTRUATION W ITH IRR; TECHNIQUE: Transvaginal (TV) and Transabdominal (TA) . FINDINGS: Date of LMP: 1 month ago EXAM MEASUREMENTS: Uterus: 7.1 x 3.7 x 3.9 cm Endometrial Stripe: 1.0 cm Right Ovary: 2.0 x 1.2 x 1.8 cm Left Ovary: 1.8 x 1.2 x 1.9 cm 1. Uterus: anteverted 2. Endometrium: appears wnl 3. Right Ovary: wnl 4. Left Ovary: wnl 5. Bilateral Adnexa: wnl 6. Posterior cul-de-sac: wnl IMPRESSION: Unremarkable pelvic ultrasound O-RADS 2021 [email or web address] [email or web address], , 04/15/2025 2:28 PM
== END | disposition home or self-care (01) ==
LOC: RADUSWWP 13:23
PROVIDERS: ATTEND Family Medicine
DX: N92.1 Excessive and frequent menstruation with irregular cycle (principal)
CPT/HCPCS: 76830; 76856